=== PATIENT | female | born 1965 | race Caucasian/White ===

== ENCOUNTER 2021-06-07 01:34 | Emergency (ER) | payer OTHER ==
[~2021-06-07] VITALS: Ht 154.9 cm; Wt 114.3 kg
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
[~2021-06-07 01:34] MED LIST: ARMOUR THYROID90 M1 PO; IBUPROFEN 600600 M1 PO; NORCO 5-325 TA1 EACH PO
[2021-06-07] MEDS ORDERED: LOSARTAN POTASS50 MG PO (01:44)
[2021-06-07] MEDS ORDERED: PROTONIX40 M2 PO (01:44)
[2021-06-07] MEDS ORDERED: SPIRONOLACTONE25 MG PO (01:45)
[2021-06-07] MEDS ORDERED: LEVOTHYROXINE200 MC2 PO (01:45)
[2021-06-07] MEDS ORDERED: FUROSEMIDE 40 M40 MG PO (01:45)
[2021-06-07 03:01] VITALS: BP 131/87
== END 2021-06-07 03:03 | disposition home or self-care (01) ==
LOC: ER 01:34
DX: L50.9 Urticaria, unspecified (principal); T47.1X5A Adverse effect of other antacids and anti-gastric-secretion drugs, initial encounter; Y92.89 Other specified places as the place of occurrence of the external cause; E03.9 Hypothyroidism, unspecified; Z90.49 Acquired absence of other specified parts of digestive tract; Z79.811 Long term (current) use of aromatase inhibitors; Z79.3 Long term (current) use of hormonal contraceptives; Z79.899 Other long term (current) drug therapy; Z88.2 Allergy status to sulfonamides